=== PATIENT | male | born 1965 | race Caucasian/White ===

== ENCOUNTER 2020-11-24 10:44 | Emergency (ER) | payer OTHER ==
[~2020-11-24] VITALS: Ht 175.3 cm; Wt 90.9 kg
[2020-11-24] MEDS ORDERED: IBUPROFEN 600 MG TABLET PO ONE (11:30)
[2020-11-24 14:49] VITALS: BP 155/90
== END 2020-11-24 14:53 | disposition home or self-care (01) ==
LOC: EMS 10:59
DX: S83.91XA Sprain of unspecified site of right knee, initial encounter (principal); S50.02XA Contusion of left elbow, initial encounter; S70.01XA Contusion of right hip, initial encounter; Y35.813A Legal intervention involving manhandling, suspect injured, initial encounter; Y93.89 Activity, other specified; Y92.89 Other specified places as the place of occurrence of the external cause; Y99.8 Other external cause status
CPT/HCPCS: 70450; 72125; 73502; 99285

== ENCOUNTER 2025-05-08 19:52 | Emergency (ER) | payer OTHER ==
[~2025-05-08] VITALS: Ht 172.7 cm; Wt 113.6 kg
[2025-05-08 19:58] VITALS: BP 129/83; PULSE 90; RESP 16; TEMP 98.4; O2SAT 96
[2025-05-09] MEDS: LIDOCAINE 5% TRANSDERMAL PATCH TD ONE (00:08)
[2025-05-09] MEDS: ACETAMINOPHEN 500 MG TABLET PO ONE (00:08)
[2025-05-09] MEDS: IBUPROFEN 400 MG TABLET PO ONE (00:08)
[2025-05-09] MEDS ORDERED: METH-812 PO (00:33)
== END 2025-05-09 01:06 | disposition home or self-care (01) ==
LOC: EMS 19:52 → EDBD 19:52 → EMS 05-09 01:06
DX: M25.532 Pain in left wrist (principal); M25.552 Pain in left hip; M54.50 Low back pain, unspecified; Z96.643 Presence of artificial hip joint, bilateral; V03.90XA Pedestrian on foot injured in collision with car, pick-up truck or van, unspecified whether traffic or nontraffic accident, initial encounter; Y93.89 Activity, other specified; Y92.410 Unspecified street and highway as the place of occurrence of the external cause; Y99.8 Other external cause status
CPT/HCPCS: 73503; 99284

== ENCOUNTER 2025-05-27 11:51 | Emergency (ER) | payer OTHER ==
[~2025-05-27] VITALS: Ht 172.7 cm; Wt 114.0 kg
[~2025-05-27 11:51] MED LIST: METH-812 PO
[2025-05-27 12:16] LABS: COVID AG,FIA SOURCE NASAL SWAB
[2025-05-27 12:39] LABS: SARS-COV2 (COVID) ANTIGEN,FIA Negative (Negative)
[2025-05-27 12:40] LABS: INFLUENZA TYPE A NEGATIVE FOR TYPE A (NEGATIVE); INFLUENZA TYPE B NEGATIVE FOR TYPE B (NEGATIVE)
[2025-05-27] MEDS: IBUPROFEN 600 MG TABLET PO ONE (13:24)
[2025-05-27] MEDS: BENZONATATE 100 MG CAPSULE PO ONE (13:24)
[2025-05-27] MEDS ORDERED: GUAI100L96 PO (13:39)
[2025-05-27] MEDS ORDERED: BENZ-227 PO (13:39)
[2025-05-27 14:41] VITALS: BP 120/67; PULSE 64; RESP 18; TEMP 98.7; O2SAT 96
== END 2025-05-27 14:42 | disposition home or self-care (01) ==
LOC: EMS 11:51
DX: J06.9 Acute upper respiratory infection, unspecified (principal); R05.9 Cough, unspecified; R09.81 Nasal congestion; R50.9 Fever, unspecified; R11.0 Nausea; Z79.899 Other long term (current) drug therapy; Z98.890 Other specified postprocedural states; Z20.822 Contact with and (suspected) exposure to COVID-19
CPT/HCPCS: 87804; 99283